=== PATIENT | female | born 1960 | race Caucasian/White ===

== ENCOUNTER → 2018-01-16 | Outpatient (CLI) | payer OTHER ==
[~2018-01-16] MED LIST: CIPRO500 MG PO; ERYTHROMYCIN E3.5 G1 OPHTHALMIC; FLAGYL500 MG PO; LIDOCAINE 2%2 %/5 GM TOP; NORCO 7.5-3251 EACH PO; ULTRAM 50MG TAB50 MG PO; ZOFRAN ODT4 MG PO
== END ==
LOC: M.CT 07:30
DX: K62.5 Hemorrhage of anus and rectum (principal); K58.9 Irritable bowel syndrome, unspecified; M54.5 Low back pain; R14.0 Abdominal distension (gaseous); Z90.710 Acquired absence of both cervix and uterus

== ENCOUNTER 2018-02-08 04:25 | Emergency (ER) | payer OTHER ==
[~2018-02-08] VITALS: Ht 160 cm; Wt 63.0 kg
[~2018-02-08 04:25] MED LIST changes: -LIDOCAINE 2%2 %/5 GM TOP; -NORCO 7.5-3251 EACH PO
[2018-02-08 04:33] VITALS: BP 119/78
[2018-02-08 05:14] LABS: ABSOLUTE EOSINOPHILS 0.2 thou/uL (0.0-0.7); ABSOLUTE LYMPHOCYTES 1.8 thou/uL (0.8-5.3); ABSOLUTE MONOCYTES 0.6 thou/uL (0.0-1.2); ABSOLUTE NEUTROPHILS 4.7 thou/uL (1.6-8.1); BASOPHILS 0.5 %; EOSINOPHILS 2.7 %; HEMATOCRIT 39.1 % (37.0-47.0); HEMOGLOBIN 13.4 gm/dL (12.0-15.0); LYMPHOCYTES 24.5 %; MCHC 34.2 g/dL (28.0-37.0); MCV 93.5 fL (80.0-100.0); MONOCYTES 8.6 %; NUCLEATED RBCS 0 /100WBC; PLATELET COUNT* 207 thou/uL (150-400); POLYS 63.7 %; RBC 4.18 mil/uL (4.20-5.00); RDW-CV 13.3 % (10.5-14.5); WBC 7.4 thou/uL (4.0-11.0)
[2018-02-08 05:33] LABS: CALCIUM 9.2 mg/dL (8.5-10.1); CREATININE 0.8 mg/dL (0.6-1.3); POTASSIUM 3.6 mmol/L (3.5-5.1)
[2018-02-08 05:37] LABS: ALBUMIN 3.5 g/dL (3.4-5.0); TOTAL BILIRUBIN 0.4 mg/dL (<0.1-1.0); TOTAL PROTEIN 6.8 g/dL (6.4-8.2)
[2018-02-08 05:44] LABS: URINE BILIRUBIN NEGATIVE (Negative); URINE BLOOD 1+ (Negative); URINE CLARITY CLEAR; URINE COLOR YELLOW; URINE GLUCOSE-RANDOM NEGATIVE (Negative); URINE KETONES NEGATIVE (Negative); URINE LEUKOCYTES-REFLEX 1+ (Negative); URINE NITRITE-REFLEX NEGATIVE (Negative); URINE PROTEIN NEGATIVE (Negative); URINE UROBILINOGEN 0.2 E.U./dl (0.2-1.0)
[2018-02-08 05:46] VITALS: BP 127/79
[2018-02-08 05:52] LABS: BACTERIA-REFLEX >30 Many /HPF (None Seen); CRYSTALS None Seen /LPF (None Seen); FINE GRANULAR CASTS 0-3 Few /LPF (None Seen); HYALINE CASTS 0-3 Few /LPF (None Seen); MUCUS 4-6 Moderate strn/LPF (None Seen); SQUAMOUS 4-10 Moderate /LPF (0-3); TRANSITIONAL EPITHEL CELL 0-3 Few /LPF (None Seen); URINE RBC 3-10 Few /HPF (0-2); URINE WBC-REFLEX 6-15 Few /HPF (0-5)
[2018-02-08 06:12] LABS: APTT 30.7 Seconds (25.0-31.3); PROTIME 10.1 Seconds (9.20-11.50)
[2018-02-08 07:55] VITALS: BP 127/79
[2018-02-08] MEDS ORDERED: NORCO 7.5-3251 EACH PO (08:11)
[2018-02-08] MEDS ORDERED: LIDOCAINE 2%2 %/5 GM TOP (08:14)
--- NOTE | 2018-02-08 11:33 | EKG ---
[place] [address] ELECTROCARDIOGRAM REPORT Name: RYANNE ARGUETA Room: [address]R.#: [id number] Admission: 02/08/18 Attend Phys: Herminia Hudson MD Discharge: Date of : 64 Report #: [id number] THIS REPORT FOR: //name// [facility] [place] ED Test Date: 2018-02-08 Test Time: 05:11:03 Pat Name: RYANNE ARGUETA Department: Room: Gender: F Integration Lead: : 1960 Requested By: oLc Sterling Order Number: [id number] MD: Carlos Rawls Measurements Intervals [place] Rate: 85 P: 87 [place]: 145 QRS: 74 QRSD: 76 T: -8 QT: 353 QTc: 420 Interpretive Statements Sinus rhythm Borderline T abnormalities, inferior leads No previous ECG available for comparison Electronically Signed On 02-08-2018 11:33:19 CDT by Carlos Rawls [email or web address] <ELECTRONICALLY SIGNED> By: Carlos Rawls MD, [facility] 02/08/18 1133 0511 0 Carlos Rawls MD, FACC /EPI
--- NOTE | 2018-02-15 15:58 | OP ---
[address] [address] OPERATIVE REPORT Name: RYANNE ARGUETA Room: [facility]#: [id number] Admission: 02/08/18 Attend Phys: Discharge: 02/08/18 Date of : 64 Report #: [id number] THIS REPORT FOR: //name// CC: Herminia Hudson Primary Care Doctor Harshil Jarrell DICTATED BY: Aj Horton DO DATE OF SERVICE: 02/08/2018 PREOPERATIVE DIAGNOSIS: Bleeding internal hemorrhoids. POSTOPERATIVE DIAGNOSIS: Three-column bleeding internal hemorrhoids. SURGEON: Dr. Herminia Hudson. AITCHBONE BREAKER: Efraín Horton, PGY-3. OPERATION PERFORMED: Three column hemorrhoidectomy. ANESTHESIA TYPE: General and local. ESTIMATED BLOOD LOSS: 20 mL. SPECIMENS REMOVED: Three-column hemorrhoid tissue. COMPLICATIONS: None. HISTORY OF PRESENT ILLNESS: The patient is a very pleasant 58-year-old female who was seen in our office earlier yesterday afternoon on 02/07/2018. At that time, the patient was noted to have some internal hemorrhoids, which were banded in the office. She was sent home afterwards and was doing fine initially, but then started to have some bleeding from her hemorrhoids. She complained of profuse bleeding throughout the day that went into the night. She woke up around 3 this morning and there was some saturated linens on her bedding and the patient became very concerned. She contacted us early this morning and we recommended that she be sent to the ER. On arrival to the ER, the patient was seen and examined. It was recommended that she have 3-column hemorrhoidectomy. A complete description of the procedure was reviewed in detail with the patient. All risks, benefits, and complications were also discussed with the patient. She voiced complete understanding and wished to proceed. DESCRIPTION OF PROCEDURE: The patient was taken to the operating room where she remained on her cot as general anesthetic was induced and the patient was subsequently intubated. All lines were placed by Anesthesia[place] [address] OPERATIVE REPORT Name: RYANNE ARGUETA Room: [facility]#: [id number] Admission: 02/08/18 Attend Phys: Discharge: 02/08/18 Date of : 64 Report #: [id number] placed on bilateral lower extremities. Once the patient was sedated and intubated, she was transferred to the operating table and laid in the prone position. She had adequate padding in all of her bony extremities to protect her during the procedure. She had a safety strap placed over her torso and her gluteal cleft was retracted laterally on either side using a tape. Once the patient was in the proper position, the area was prepped and draped in standard sterile fashion. A timeout was performed to correctly identify the patient and procedure. After the initial examination using a speculum, the patient was noted to have some bleeding internal hemorrhoids. This bleeding was most noted from the left lateral hemorrhoid column. We first decided to start with this column. The hemorrhoidal tissue was elevated using DeBakey forceps and a small Harmonic scalpel was used to excise the hemorrhoidal tissue. There was some initial bleeding, which was adequately controlled with electrocautery. We then reapproximated the dentate line using a 3-0 Vicryl suture. Then, in a running locking fashion, we closed the remainder of the defect, starting internally and working externally. There was adequate hemostasis that was achieved after this was performed. This was done on the remainder of the other 2 columns, the right anterior and right posterior columns. Any bleeding that was occurring after final suturing was taken care of using electrocautery. We thoroughly irrigated the area and there appeared to be no active bleeding at the completion of the case. During the excision of the hemorrhoidal tissue, we were able to palpate and feel the internal and external sphincter muscles. We made a conscious effort to stay far away from both of these muscles and to ensure they remained intact during the procedure. The patient had good rectal tone at the completion of the procedure. Gelfoam was placed into the anus and the patient was cleaned and dried an adequate fashion. Local anesthetic was used to inject the hemorrhoidal sites that were excised. A total of 50 mL of local anesthetic was used. We then applied 2% lidocaine jelly to the area. Gauze and ABD padding were placed as a dressing. The patient tolerated the procedure well and she was transferred back to her cart where she was allowed to awaken and subsequently extubated. The patient was transferred to the PACU in stable condition. All counts were correct x 2 at the end of the procedure. Dr. Herminia Hudson was present for the entirety of this procedure. The patient will be allowed to recover in the PACU and subsequently be discharged home. She has a close followup scheduled in our office and is advised to call with any questions or concerns. <ELECTRONICALLY SIGNED> By: Herminia Hudson MD 02/15/18 1558 [id number] [id number] Lc Hudson MD /pedro
== END 2018-02-08 05:47 | disposition still patient (30) ==
LOC: M.ERS 04:25 → M.TBA 07:25 → M.ERS 07:25
PROVIDERS: Family Medicine
DX: K64.9 Unspecified hemorrhoids (principal); Z90.710 Acquired absence of both cervix and uterus; Z88.2 Allergy status to sulfonamides

== ENCOUNTER → 2018-09-25 | Outpatient (CLI) | payer OTHER ==
[~2018-09-25] MED LIST changes: +LIDOCAINE 2%2 %/5 GM TOP; +NORCO 7.5-3251 EACH PO
== END ==
LOC: M.RAD 14:03
DX: Z12.31 Encounter for screening mammogram for malignant neoplasm of breast (principal)

== ENCOUNTER → 2018-10-01 | Outpatient (CLI) | payer OTHER | LOC: M.CT 07:40 | DX: G52.9 Cranial nerve disorder, unspecified (principal) ==

== ENCOUNTER → 2018-10-25 | Outpatient (CLI) | payer OTHER ==
--- NOTE | 2018-10-31 13:21 | SLEEP ---
[address] [address] SLEEP STUDY REPORT Name: ELLIERYANNE RUGGIERON Room: [facility]#: [id number] Admission: 10/25/18 Attend Phys: Harshil Jarrell DO Discharge: Date of : 64 Report #: [id number] THIS REPORT FOR: //name// CC: Harshil Jarrell DO This study has been reviewed in its entirety by a board certified sleep specialist DATE OF SERVICE: 10/26/2018 HOME SLEEP STUDY The patient is a 58-year-old who weighs 140 pounds with a BMI of 24.8. The patient's [place] score was 7. The patient underwent home sleep study performed at [facility]. Total recording time was 562 minutes. During the night study, the patient has 117 obstructive apneas, 2 central apneas, no mixed apneas and 160 hypopneas. The patient's apnea-hypopnea index was 30 per hour. Supine sleep was not recorded. Nocturnal oximetry study revealed an average oxygen saturation of 94% with a lowest of 71%. Six minutes were spent in oxygen saturation of less than 88%. Mean heart rate was 57 beats per minute. IMPRESSION: 1. Severe sleep apnea-hypopnea syndrome at an AHI of 30 per hour. 2. Nocturnal hypoxia secondary to obstructive sleep apnea. RECOMMENDATIONS: 1. The patient would benefit from in-lab CPAP titration study. 2. Once optimum CPAP pressure is achieved, then follow up in 4-6 weeks to assess compliance with CPAP and to document clinical improvement. 3. Avoid HYBRID CORN BREEDER depressants. 4. Cautioned regarding driving until symptoms of sleep apnea resolve with the use of CPAP. <ELECTRONICALLY SIGNED> By: Hakeem Saxena MD 10/31/18 1321 1049 1100Aman Chris Saxena MD /nt
== END ==
LOC: M.SLEEPLAB 09:00
DX: G47.33 Obstructive sleep apnea (adult) (pediatric) (principal); G47.34 Idiopathic sleep related nonobstructive alveolar hypoventilation; R06.83 Snoring; R40.0 Somnolence

== ENCOUNTER → 2019-09-30 | Outpatient (CLI) | payer OTHER | LOC: M.RAD 07:14 | DX: Z12.31 Encounter for screening mammogram for malignant neoplasm of breast (principal) ==

== ENCOUNTER → 2020-10-05 | Outpatient (CLI) | payer OTHER | LOC: M.RAD 10:58 | DX: Z12.31 Encounter for screening mammogram for malignant neoplasm of breast (principal); Z98.890 Other specified postprocedural states ==